=== PATIENT | male | born 1995 | race Caucasian/White ===

== ENCOUNTER 2017-05-07 09:43 | Emergency (ER) | payer OTHER ==
[~2017-05-07] VITALS: Ht 185.4 cm; Wt 72.3 kg
[2017-05-07 09:44] VITALS: BP 122/68
[2017-05-07] MEDS ORDERED: DERMABOND TOPICAL SKIN ADHESIVE TOP ONE (10:30)
--- NOTE | 2017-05-07 10:49 | REP ---
LEFT HAND SERIES: Four views of the left hand are performed. There is a nondisplaced fracture of the 3rd distal phalanx extending into the distal interphalangeal joint. No other acute fracture or dislocation is seen. IMPRESSION: Nondisplaced fracture 3rd distal phalanx. Signed by Bennett Joe MD 05/07/2017 04:24 P
== END 2017-05-07 11:21 | disposition home or self-care (01) ==
LOC: M ED 10:15
DX: S62.663A Nondisplaced fracture of distal phalanx of left middle finger, initial encounter for closed fracture (principal); S61.313A Laceration without foreign body of left middle finger with damage to nail, initial encounter; S61.315A Laceration without foreign body of left ring finger with damage to nail, initial encounter; W23.0XXA Caught, crushed, jammed, or pinched between moving objects, initial encounter; Y92.9 Unspecified place or not applicable; Y93.89 Activity, other specified; Y99.0 Civilian activity done for income or pay

== ENCOUNTER 2018-05-04 05:35 | Emergency (ER) | payer SELFPAY, OTHER ==
[2018-05-04] MEDS: IBUPROFEN 800 MG TAB PO (06:30)
[2018-05-04] MEDS: ACETAMINOPHEN TAB 650MG DOSE (2X325MG) PO (06:30)
== END 2018-05-04 06:37 | disposition home or self-care (01) ==
LOC: M ED 05:35
DX: K02.9 Dental caries, unspecified (principal); K08.89 Other specified disorders of teeth and supporting structures; Z72.0 Tobacco use
CPT/HCPCS: 99282

== ENCOUNTER 2020-12-19 20:45 | Emergency (ER) | payer SELFPAY ==
[2020-12-19 20:45] VITALS: BP 145/76
[~2020-12-19 20:45] MED LIST: AUGM875T28 PO; IBUP-1022 PO; NORC1TAB7 PO
--- OUTSIDE RECORDS SUMMARY | 2020-12-19 20:52 | CCD ---
Author Author [facility] Address Unknown Phone Unavailable Support Name Relationship Address Phone KRAIG Next Of Kin [address] [place], [place] [id number] NEETU PAYNE Next Of Kin [address] [address] Re-disclosure Warning The records that you are about to access may contain information from federally-assisted alcohol or drug abuse programs. If such information is present, then the following federally mandated warning applies: This information has been disclosed to you from records protected by federal confidentiality rules (42 CFR part 2). The federal rules prohibit you from making any further disclosure of this information unless further disclosure is expressly permitted by the written consent of the person to whom it pertains or as otherwise permitted by 42 CFR part 2. A general authorization for the release of medical or other information is NOT sufficient for this purpose. The Federal rules restrict any use of the information to criminally investigate or prosecute any alcohol or drug abuse patient.The records that you are about to access may contain highly sensitive health information, the redisclosure of which is protected by Article 27-F of the [facility] Public Health law. If you continue you may have access to information: Regarding HIV / AIDS; Provided by facilities licensed or operated by the [facility] Office of Mental Health; or Provided by the [facility] Office for People With Developmental Disabilities. If such information is present, then the following [facility] mandated warning applies: This information has been disclosed to you from confidential records which are protected by state law. State law prohibits you from making any further disclosure of this information without the specific written consent of the person to whom it pertains, or as otherwise permitted by law. Any unauthorized further disclosure in violation of state law may result in a fine or care home sentence or both. A general authorization for the release of medical or other information is NOT sufficient authorization for further disc losure. Insurance Providers Payer name Policy type / Coverage type Policy ID Covered alliance party ID Covered alliance party's relationship to valdez Policy Valdez Plan Information SELF PAY ONLY [id number] SP [id number] [facility] [id number] [facility] [id number] SP [id number] [facility] [id number] SP [id number]
--- OUTSIDE RECORDS SUMMARY | 2020-12-19 23:19 | CCD ---
Author Author [facility] Address Unknown Phone Unavailable Support Name Relationship Address Phone KRAIG Next Of [address] [place] [address] NEETU PAYNE Next Of Kin [address] [place] [id number] Re-disclosure Warning The records that you are [...] is protected by Article 27-F of the [facility] Public Health law. If you continue you may have access to information: Regarding HIV / AIDS; Provided by facilities licensed or operated by the [facility] Office of Mental Health; or Provided by the [facility] Office for People With Developmental Disabilities. If such information is present, then the following [facility] mandated warning applies: This information has been [...] law may result in a fine or assisted sentence or both. A general authorization for the release of medical or other information is NOT sufficient authorization for further disc losure. Insurance Providers Payer name Policy type / Coverage type Policy ID Covered constitution party ID Covered constitution party's relationship to valdez Policy Valdez Plan Information SELF PAY ONLY [id number] SP [id number] [facility] [id number] [facility] [id number] SP [id number] [facility] [id number] SP [id number]
== END 2020-12-19 23:46 | disposition home or self-care (01) ==
LOC: M ED 20:45
DX: F33.9 Major depressive disorder, recurrent, unspecified (principal); R45.851 Suicidal ideations; F12.10 Cannabis abuse, uncomplicated; F10.10 Alcohol abuse, uncomplicated; F11.10 Opioid abuse, uncomplicated

== ENCOUNTER → 2021-04-29 | Outpatient (CLI) | payer SELFPAY | LOC: M OUTALCOH 07:47 | PROVIDERS: ATTEND Psychiatry & Neurology Psychiatry | DX: F10.20 Alcohol dependence, uncomplicated (principal); F12.10 Cannabis abuse, uncomplicated ==

== ENCOUNTER 2021-05-20 09:30 | Outpatient (RCR) | payer SELFPAY | END 2021-05-22 | LOC: M OUTALCOH 09:30 | PROVIDERS: ATTEND Psychiatry & Neurology Psychiatry | DX: F10.20 Alcohol dependence, uncomplicated (principal); F12.10 Cannabis abuse, uncomplicated ==

== ENCOUNTER 2021-06-18 15:18 | Outpatient (RCR) | payer SELFPAY | END 2021-06-22 | LOC: M OUTALCOH 15:18 | PROVIDERS: ATTEND Psychiatry & Neurology Psychiatry | DX: F10.20 Alcohol dependence, uncomplicated (principal); F12.10 Cannabis abuse, uncomplicated ==

== ENCOUNTER 2021-07-22 15:56 | Outpatient (RCR) | payer SELFPAY | END 2021-07-23 | LOC: M OUTALCOH 15:56 | PROVIDERS: ATTEND Psychiatry & Neurology Psychiatry | DX: F10.20 Alcohol dependence, uncomplicated (principal); F12.10 Cannabis abuse, uncomplicated ==

== ENCOUNTER 2021-08-19 14:41 | Outpatient (RCR) | payer SELFPAY | END 2021-08-22 | LOC: M OUTALCOH 14:41 | PROVIDERS: ATTEND Psychiatry & Neurology Psychiatry | DX: F10.20 Alcohol dependence, uncomplicated (principal); F12.10 Cannabis abuse, uncomplicated ==

== ENCOUNTER 2021-09-17 10:25 | Outpatient (RCR) | payer SELFPAY | END 2021-09-22 | LOC: M OUTALCOH 10:25 | PROVIDERS: ATTEND Psychiatry & Neurology Psychiatry | DX: F10.20 Alcohol dependence, uncomplicated (principal); F12.10 Cannabis abuse, uncomplicated ==

== ENCOUNTER → 2021-10-22 | Outpatient (RCR) | payer SELFPAY | LOC: M OUTALCOH 09-23 14:23 | PROVIDERS: ATTEND Psychiatry & Neurology Psychiatry | DX: F10.20 Alcohol dependence, uncomplicated (principal); F12.10 Cannabis abuse, uncomplicated ==

== ENCOUNTER 2021-11-05 14:07 | Outpatient (RCR) | payer SELFPAY | END 2021-11-22 | LOC: M OUTALCOH 14:07 | PROVIDERS: ATTEND Psychiatry & Neurology Psychiatry | DX: F10.20 Alcohol dependence, uncomplicated (principal); F12.10 Cannabis abuse, uncomplicated ==

== ENCOUNTER 2021-12-10 09:25 | Outpatient (RCR) | payer SELFPAY | END 2021-12-23 | LOC: M OUTALCOH 09:25 | PROVIDERS: ATTEND Psychiatry & Neurology Psychiatry | DX: F10.20 Alcohol dependence, uncomplicated (principal); F12.10 Cannabis abuse, uncomplicated ==

== ENCOUNTER 2022-06-06 18:31 | Emergency (ER) | payer SELFPAY ==
[~2022-06-06] VITALS: Ht 185.4 cm; Wt 81.5 kg
[2022-06-06 18:32] VITALS: BP 140/87
== END 2022-06-06 20:23 | disposition left against medical advice (07) ==
LOC: M ED 18:31
DX: Z53.21 Procedure and treatment not carried out due to patient leaving prior to being seen by health care provider (principal)

== ENCOUNTER → 2024-01-08 | Outpatient (CLI) | payer SELFPAY | LOC: M OUTALCOH 08:16 | PROVIDERS: ATTEND Psychiatry & Neurology Psychiatry | DX: F10.10 Alcohol abuse, uncomplicated (principal) ==